=== PATIENT | male | born 1990 | race Caucasian/White ===

== ENCOUNTER → 2021-09-10 13:49 | Outpatient (REF) | payer OTHER, SELFPAY ==
--- NOTE | 2021-09-10 13:57 | CA_ITS ---
Transthoracic Echocardiogram Patient (Last, First, Middle): Jan Crain, Gender: Male Date of : 1990 Age: 30 Procedure Date: 09/10/2021 Procedure Type: Transthoracic Echocardiogram Location: OP Height: 185.42 cm Weight: 99.79 kg BSA: 2.24 m2 Heart Rate: bpm BP: 116 / 81 mmHg Clinical Program Director: LAVERNE Referring MD: Jesus Comer MD Waitress: Ramiro Poole MD Symptoms: Z82.49 - Family history of ischemic heart disease and oth... Study Quality: Good ECG Rhythm: Sinus Conclusions: - Normal study Findings Left Ventricle Normal left ventricular size, thickness, and systolic function. The visually estimated ejection fraction is between 60-65%. Spectral Doppler is indicative of a normal filling pattern. Prominent false tendon noted in the LV cavity, normal variant Right Ventricle Normal right ventricular cavity size and systolic function. There is a prominent moderator band seen in the right ventricle. Atria Both atria are normal in size. Interatrial shunt cannot be excluded. Aortic Valve Normal aortic valve structure and function. There is no aortic valve stenosis. There is no aortic valve regurgitation. Mitral Valve Normal mitral valve structure and function. There is no mitral valve regurgitation. There is no mitral valve stenosis. Pulmonic Valve The pulmonic valve is likely normal. Tricuspid Valve Normal tricuspid valve structure. There is trace tricuspid valve regurgitation. The right ventricular systolic pressure is normal. The right ventricular systolic pressure is 21 mmHg. Normal right atrial pressure. There is no evidence of pulmonary hypertension. Great Vessels All visible segments of the aorta are normal in size. The pulmonary artery was not well visualized. Venous The inferior vena cava is normal in size and collapses greater than 50% with inspiration. Pericardium/Pleural There is no evidence of pericardial effusion. Prior Study Comparison No prior study available for comparison. Measurements 2D Linear Measurements IVSd: 0.80 0.6-0.9/0.6-1.0 cm LVIDd: 6.11 3.9-5.3/4.2-5.9 cm LVIDd Index: 2.73 2.4-3.2/2.2-3.1 cm/m2 LVIDs: 3.94 2.0-3.6 cm LVPWd: 0.92 0.7-1.1 cm Ao Root: 3.30 2.1-3.5 cm LA Diam: 3.90 2.7-3.8/3.0-4.0 cm LAIDs Index: 1.74 1.5-2.3 cm/m2 LV Mass: 262.41 67-162/88-224 g LV Mass Index: 117.15 43-95/49-115 g/m2 LVOT Diam: 2.00 3.0+(-)1.3 cm 2D Systolic Function EF 4C: 58.80 >55% EF 2C: 63.10 >55% EF BiP: 60.20 >55% Mitral Valve MV Pk E: 0.59 MV PK A: 0.45 MV Decel Time: 202.00 E/A: 1.30 E'Lateral: 14.70 E'Medial: 10.70 E/E' Med: 5.50 E/E' Lat: 4.00 PHT: 59.00 MVA PHT: 3.73 Decel Addison: 2.91 Aortic Valve AoV Pk Tom: 1.13 AoV Mn Tom: 0.87 AoV VTI: 0.25 AoV Pk Grad: 5.00 Aov Mn Grad: 3.00 DALTON Cont.VTI: 2.71 LVOT LVOT Pk Tom: 1.01 LVOT Mn Tom: 0.70 LVOT VTI: 0.22 LVOT Pk Grad: 4.00 LVOT Mn Grad: 2.00 LVOT Diam: 2.00 LVOT Area: 3.14 Diastolic Function MV Pk E: 0.59 MV Pk A: 0.45 E/A: 1.30 E'Medial: 10.70 E/E' Med: 5.50 E' Laterial: 14.70 E/E' Lat: 4.00 Right Ventricle TAPSE (mm): 23.20 TVS' Tom: 12.60 Tricuspid Valve TR Pk Tom: 2.15 TR Pk Grad: 18.00 RA Press: 3.00 RVSP: 21.00 Great Vessels Aorta Ao Root-2D: 3.30 2.0-3.7 cm Ao Asc: 3.00 2.1-3.4 cm Ao Arch: 3.00 Updated in Other Vendor System with Status of Final Ramiro Poole MD electronically signed on 09/11/2021 8:39:24 AM with status of Final
== END ==
LOC: HO.CARD 13:49
PROVIDERS: PCP Family Medicine; Visit Provider Family Medicine
DX: R55 Syncope and collapse (principal); Z82.49 Family history of ischemic heart disease and other diseases of the circulatory system
CPT/HCPCS: 93306